=== PATIENT | female | born 1970 | race Caucasian/White ===

== ENCOUNTER 2021-02-08 16:02 | Emergency (ER) | payer OTHER, SELFPAY ==
--- NOTE | ~2021-02-08 | XR_ITS ---
EXAMINATION: XR chest 2V DATE: 02/08/2021 17:30 INDICATION: Congestion and sinus drainage TECHNIQUE: PA and lateral views of the chest are obtained. COMPARISON: 10/24/2015 FINDINGS: The lungs are free of acute opacities. There is no pleural effusion or pneumothorax. The ca rdiomediastinal silhouette is normal. There is moderate thoracic spondylosis. IMPRESSION: 1. No acute cardiopulmonary abnormality. Reviewed, dictated and finalized at location A.
[2021-02-08 16:12] VITALS: BP 149/86; PULSE 86; RESP 20; TEMP 36.2; O2SAT 97
--- NOTE | 2021-02-08 17:11 | ECG_ITS ---
Measurements Intervals [place] Rate: 72 P: 41 KS: 175 QRS: -13 QRSD: 104 T: 4 QT: 386 QTc: 424 Interpretive Statements SINUS RHYTHM BORDERLINE R WAVE PROGRESSION, ANTERIOR LEADS BORDERLINE T WAVE ABNORMALITY- ANT/INF LEADS BASELINE ARTIFACT- I, II, AVR, AVL, AVF BORDERLINE ECG Electronically Signed On 02-09-2021 8:04:41 CDT by Arron Lyon D.O.
[2021-02-08] MEDS: traMADol HCL (*CRX) 50 MG TABLET PO (17:22)
[2021-02-08] MEDS: BENZONATATE 100 MG CAPSULE 200 MG PO (17:23)
[2021-02-08 17:31] LABS: Basophils Percent Auto 0.7 % (0.0-1.0); Eosinophils Absolute Auto 0.21 K/mm3 (0.02-0.50); Eosinophils Percent Auto 1.5 % (1.0-6.0); Hematocrit 39.5 % (35.0-49.0); Hemoglobin 13.2 g/dL (12.0-15.0); Immature Granulocyte Absolute 0.06 K/mm3 (0.00-0.00); Immature Granulocyte Percent A 0.4 % (0.0-0.0); Lymphocytes Absolute Auto 2.52 K/mm3 (1.10-4.50); Lymphocytes Percent Auto 17.5 % (18.0-42.0); Mean Corpuscular HGB Conc 33.4 g/dL (32.0-36.0); Mean Corpuscular Hemoglobin 28.7 pg (27.0-31.0); Mean Corpuscular Volume 85.9 fL (78.0-102.0); Mean Platelet Volume 9.3 fl (9.2-11.8); Monocytes Absolute Auto 0.83 K/mm3 (0.10-0.90); Monocytes Percent Auto 5.7 % (2.0-11.0); Neutrophils Absolute Auto 10.7 K/mm3 (1.7-7.2); Neutrophils Percent Auto 74.2 % (50.0-70.0); Platelet Count Result 406 K/mm3 (150-420); Red Cell Distribution Width 12.9 % (11.6-14.4); White Blood Count 14.4 K/mm3 (4.8-10.8)
[2021-02-08 17:38] LABS: Anion Gap 10 mmol/L (8-16); Blood Urea Nitrogen 12 mg/dL (7-18); Carbon Dioxide 29 mmol/L (21-32); Chloride 100 mmol/L (98-108); Estimated CRCL calculation 103 ml/min; Estimated Glomerular Filt Rate > 60; Glucose 118 mg/dL (70-99); Osmolality Calculated 288 mOsm/kg (285-295); Potassium 3.3 mmol/L (3.5-5.1); Sodium 139 mmol/L (136-145)
[2021-02-08 17:48] LABS: Troponin I 29.5 ng/L (0.00-60.4)
[2021-02-08 18:01] LABS: BNP 62.7 pg/mL (0-100)
--- NOTE | 2021-02-08 18:11 | ED.URI ---
HPI - URI/Sore Throat General Chief Complaint: Upper Respiratory Infection Stated Complaint: URI Time Seen by Provider: 02/08/21 16:25 Source: patient Mode of arrival: ambulatory Limitations: no limitations History of Present Illness HPI Narrative: Patient comes in with cough, runny nose, and chest heaviness from the cough. Cough has been moderately severe and ongoing. [facility], worried about pneumonia, and chest heaviness which has been ongoing for a few hours and related to coughing. Severity: moderate Description of mucous: clear (clear thin nasal discharge) and watery Related Data Home Medications Medication Instructions Recorded Confirmed furosemide 40 mg PO DAILY 02/08/21 02/08/21 glimepiride 2 mg PO DAILY 02/08/21 02/08/21 metformin 1,000 mg PO BID 02/08/21 02/08/21 sitagliptin [Januvia] 100 mg PO DAILY 02/08/21 02/08/21 Allergies Allergy/AdvReac Type Severity Reaction Status Date / Time ciprofloxacin AdvReac Intermediate Dizziness Verified 08/05/19 09:46 Review of Systems Constitutional: Constitutional: Reports no additional constitutional complaints Eyes: Eyes: Reports no additional eye complaints ENT: Reports system reviewed and no additional complaints, except as documented Cardiovascular: Cardiovascular: Reports no additional cardiovascular complaints Respiratory: Respiratory: Reports no additional respiratory complaints Gastrointestinal: Gastrointestinal: Reports no additional gastrointestinal complaints Genitourinary: Genitourinary: Reports no additional female genitourinary complaints Musculoskeletal: Musculoskeletal: Reports no additional musculoskeletal complaints Integumentary/Breasts: Skin/Breast: Reports system reviewed and no additional complaints, except as docu Neurologic: Reports system reviewed and no additional complaints, except as documented Psychiatric: Psychiatric: Reports no additional psychiatric complaints Endocrine: Endocrine: Reports no additional endocrine complaints Hematologic/Lymphatic: Hematologic/Lymphatic: Reports no additional hematologic/lymphatic complaints Allergic/Immunologic: Allergic/Immunologic: Reports no additional allergic/immunologic complaints [facility] Past Medical History Medical History Diabetes Edema Surgical History Surgical History H/O vein stripping History of cholecystectomy Status post breast reduction Family History Family History (Updated 02/09/21 @ 06:21 by Reinaldo Payan MD) Mother CAD (coronary artery disease) Social History Social History (Updated 02/09/21 @ 06:22 by Reinaldo Payan MD) Smoking status: Former smoker Alcohol use details: rare alcohol use with friends Exam Const: General: no acute distress HENMT: Head: normal to inspection Ears: external ears normal and TM abnormal (clear thin nasal discharge) Mouth: Yes Normal oral and palatal mucosa present and Yes Abnormal oral and palatal mucosa present (mild erythema of pharynx) Eyes: Conjunctivae: conjunctivae normal Neck: Neck: normal visual inspection Chest: Chest palpation & inspection: normal inspection of the chest Resp: Effort & Inspection: normal respiratory effort Auscultation: clear to auscultation bilaterally Cardio: Rate: regular rate Rhythm: regular rhythm GI: GI Palp: Yes Soft to palpation (nontender) Back/Spine/Pelvis: Back: no CVA tenderness Skin: General skin exam: normal color Neuro: General: patient oriented x3 and moves all extremities Extrem: General: normal to inspection Psych: Appearance: grossly normal Mental Status: mental status grossly normal Thought content: Yes Normal thought content present Course Course Emergency Course: Labs were reviewed. Chest x ray was reviewed. Vital Signs Vital signs: Vital Signs Temperature 36.2 C L 02/08/21 16:12 Pulse Rate 86
[2021-02-08 18:41] VITALS: BP 121/64; PULSE 74; RESP 20; TEMP 37.1; O2SAT 96
== END 2021-02-08 18:49 | disposition home or self-care (01) ==
PROVIDERS: Emergency Provider Emergency Medicine
DX: B34.9 Viral infection, unspecified (principal)
CPT/HCPCS: 36415; 71046; 80048; 83880; 84484; 85025; 93005; 99282; 99284; A9270

== ENCOUNTER 2021-08-07 09:23 | Emergency (ER) | payer OTHER, SELFPAY ==
[2021-08-07 09:51] VITALS: BP 156/91; PULSE 66; RESP 18; TEMP 36.8; O2SAT 98
--- NOTE | 2021-08-07 10:11 | ED.SKABFB ---
HPI - Skin/Abscess/Foreign Bdy General Chief complaint: Skin/Abscess/Foreign Body Stated complaint: SCABIES Source: patient and family Mode of arrival: ambulatory History of Present Illness HPI narrative: this is a 51-year-old female that presents with her son they have a distinct itchy rash located on arms and her abdomen and chest and lower extremities started days ago her son is with her and he has similar symptoms with some follicular lesions that are located on on her arms and they do have a hot tub at home that they both use, currently there is no fever or chills there is some itching currently no drainage no nausea vomiting there is no burrows to suggest evidence of scabies. complaint: rash Onset (ago): day(s) Location: chest, L hand and R hand Severity: moderate Related Data Home Medications Medication Instructions Recorded Confirmed furosemide 40 mg PO DAILY 02/08/21 02/08/21 glimepiride 2 mg PO DAILY 02/08/21 02/08/21 metformin 1,000 mg PO BID 02/08/21 02/08/21 sitagliptin [Januvia] 100 mg PO DAILY 02/08/21 02/08/21 Allergies Allergy/AdvReac Type Severity Reaction Status Date / Time No Known Allergies Allergy Verified 08/07/21 10:03 Review of Systems Review of Systems: All systems reviewed & are unremarkable except as noted in HPI and below PMFSH Past Medical History Medical History Diabetes Edema Surgical History Surgical History H/O vein stripping History of cholecystectomy Status post breast reduction Family History Family History Mother CAD (coronary artery disease) Social History Social History Smoking status: Former smoker Alcohol use details: rare alcohol use with friends Exam Const: General: no acute distress Eyes: Conjunctivae: conjunctivae normal Pupils: Equal, round and reactive pupils present EOM: EOMs intact bilaterally Neck: Neck: normal visual inspection, no lymphadenopathy and no meningeal signs Chest: Chest palpation & inspection: normal inspection of the chest Resp: Effort & Inspection: normal respiratory effort Cardio: Rate: regular rate : General: Yes no CVA tenderness Course Course Emergency Course: Will treat with antibiotic Keflex and advised patient to take Benadryl as needed for itching Critical Care Time Critical Care Time Critical Care Time: No Discharge Plan Discharge Clinical Impression: Hot tub folliculitis Patient Disposition: Home, Self-Care Condition: Stable Instructions: Antibiotic Form, Folliculitis (ED) Additional Instructions: take medicine as prescribed, can use Benadryl as needed for itching and if symptoms persist or worsen should follow up with primary care physician. Prescriptions: New cephalexin 500 mg capsule 500 mg PO Q12H Qty: 10 RF: 0 cephalexin 500 mg capsule 500 mg PO Q12H Qty: 20 RF: 0 No Action furosemide 40 mg tablet 40 mg PO DAILY RF: 0 glimepiride 2 mg tablet 2 mg PO DAILY RF: 0 metformin 1,000 mg tablet 1,000 mg PO BID RF: 0 Januvia 100 mg tablet 100 mg PO DAILY RF: 0 Follow-up/Referrals: UNKNOWN,DOCTOR [Primary Care Provider] - Time of Disposition: 10:18
[2021-08-07 10:47] VITALS: BP 147/97; PULSE 64; RESP 18; O2SAT 99
== END 2021-08-07 10:50 | disposition home or self-care (01) ==
PROVIDERS: Emergency Provider Emergency Medicine
DX: L73.8 Other specified follicular disorders (principal)
CPT/HCPCS: 99283

== ENCOUNTER 2023-01-18 10:19 | Emergency (ER) | payer OTHER, SELFPAY ==
[2023-01-18 10:24] VITALS: BP 132/85; PULSE 65; RESP 16; TEMP 36.1; O2SAT 100
[2023-01-18 10:28] VITALS: BP 132/85; PULSE 65; RESP 16; TEMP 36.1; O2SAT 100
--- NOTE | 2023-01-18 10:29 | ED.URI ---
HPI - URI/Sore Throat General Chief Complaint: Upper Respiratory Infection Stated Complaint: Cough/Sinus/Throat Time Seen by Provider: 01/18/23 10:29 Source: patient Mode of arrival: ambulatory Limitations: no limitations History of Present Illness HPI Narrative: Patient is a 52-year-old female who presents with a week and half of sinus congestion, cough, sore throat, ear fullness. Reports fever and fatigue started Wednesday. Taken Tylenol, DayQuil and NyQuil with mild relief. States she had COVID and strep throat in November and was admitted to hospital. Related Data Home Medications Medication Instructions Recorded Confirmed furosemide 40 mg tablet 60 mg PO DAILY 02/08/21 01/18/23 metformin 1,000 mg tablet 500 mg PO TID 02/08/21 01/18/23 dulaglutide 4.5 mg/0.5 mL 4.5 mg subcut WEEKLY 01/18/23 01/18/23 subcutaneous pen injector (Trulicity) empagliflozin 25 mg tablet 25 mg PO DAILY 01/18/23 01/18/23 (Jardiance) Allergies Allergy/AdvReac Type Severity Reaction Status Date / Time [id number] Reductase Allergy Intermediate Cramping Verified 01/18/23 10:50 Inhibitor of the Muscles ciprofloxacin AdvReac Mild Dizziness Verified 01/18/23 10:50 Review of Systems Review of Systems: All systems reviewed & are unremarkable except as noted in HPI and below Constitutional: Constitutional: Denies body ache(s), Reports fatigue, Reports fever(s), Reports malaise and Denies weakness Eyes: Eyes: Denies loss of vision ENT: Reports otalgia, Denies headache(s), Reports nasal congestion, Denies sinus pain and Reports sore throat Cardiovascular: Cardiovascular: Denies chest pain, Denies irregular heart rhythm and Denies dyspnea Respiratory: Respiratory: Reports cough and Denies dyspnea Gastrointestinal: Gastrointestinal: Denies abdominal pain, Denies melena, Denies hematochezia, Denies diarrhea, Denies nausea and Denies vomiting Musculoskeletal: Musculoskeletal: Denies back pain, Denies myalgias and Denies arthralgias Integumentary/Breasts: Skin/Breast: Denies pruritus and Denies rash Neurologic: Denies headache(s), Denies loss of vision and Denies weakness Psychiatric: Psychiatric: Reports no additional psychiatric complaints PMFSH Past Medical History Medical History Diabetes Edema Surgical History Surgical History H/O vein stripping History of cholecystectomy Status post breast reduction Family History Family History Mother CAD (coronary artery disease) Social History Social History Smoking status: Former smoker Alcohol use details: rare alcohol use with friends Comments At time of signature, agree with nursing past medical, surgical, social and family history. There is no relevant family history pertinent to the presenting complaint. Exam Const: General: cooperative, healthy appearing, comfortable, no acute distress and well nourished Nutritional Appearance: well nourished Orientation/consciousness: patient oriented x3 Limitations: no limitations HENMT: Head: normal to inspection, normocephalic and atraumatic Ears: hearing grossly normal bilaterally, external ears normal and TM's normal bilaterally Face/Nose/Sinus: Normal external nose present, Abnormal mucous membranes and turbinates present erythematous bilateral and diffuse, normal facial exam, sinuses nontender and face symmetric Face and sinus: normal facial exam, sinuses nontender and face symmetric Mouth: Yes Normal oral and palatal mucosa present, Yes lip normal and Yes moist mucous membranes Teeth and gingiva: dentition normal Throat: posterior oropharynx normal, uvula midline, abnormal tonsil bilateral erythema, hypertrophy 2+ and pitting and posterior oropharynx abnormal erythema Eyes: General: appeara
== END 2023-01-18 10:58 | disposition home or self-care (01) ==
PROVIDERS: Emergency Provider Nurse Practitioner Family; PCP Internal Medicine
DX: J06.9 Acute upper respiratory infection, unspecified (principal); E11.9 Type 2 diabetes mellitus without complications; Z87.891 Personal history of nicotine dependence
CPT/HCPCS: 87081; 87880; 99213; G0463

== ENCOUNTER 2023-07-01 11:56 | Emergency (ER) | payer OTHER, SELFPAY ==
[2023-07-01 12:07] VITALS: BP 112/71; PULSE 69; RESP 16; TEMP 36.6; O2SAT 99
--- NOTE | 2023-07-01 13:02 | ED.EXTPRO ---
HPI - Extremity Problem General Chief complaint: Extremity Problem,Nontraumatic Stated complaint: right toe pain Time Seen by Provider: 07/01/23 12:45 Source: patient, RN notes reviewed and old records reviewed Mode of arrival: ambulatory Limitations: no limitations History of Present Illness HPI Narrative: 52 year old female who presents to express care with complaints of right toe pain with redness and swelling of medial side of right great toe for the past 2 days. Patient reports that she wonders if she has gout has never experienced gout before. Patient reports that right great toe is throbbing and it is difficult to walk on her foot. Patient reports history of diabetes, elevated cholesterol, has had previous orthopedic surgery to right great toe with screw in place.Patient reports that she takes Lasix related to having vein stripping of bilateral lower legs. Patient has not taken any OTC medications for her discomfort. Patient denies any recent trauma to right great toe or foot. MD Complaint: other (right toe pain) Onset (ago): day(s) (2) Pain Consistency: constant Location: right and toe (great) Quality: other (Throbbing) Exacerbating factors: range of motion, weight bearing, walking and palpation Related Data Home Medications Medication Instructions Recorded Confirmed furosemide 40 mg tablet 60 mg PO DAILY 02/08/21 07/01/23 metformin 1,000 mg tablet 500 mg PO TID 02/08/21 07/01/23 dulaglutide 4.5 mg/0.5 mL 4.5 mg subcut WEEKLY 01/18/23 07/01/23 subcutaneous pen injector (Trulicity) empagliflozin 25 mg tablet 25 mg PO DAILY 01/18/23 07/01/23 (Jardiance) rosuvastatin 5 mg tablet 5 mg PO DIRECTED 07/01/23 07/01/23 Allergies Allergy/AdvReac Type Severity Reaction Status Date / Time [id number] Reductase Allergy Intermediate Cramping Verified 01/18/23 10:50 Inhibitor of the Muscles ciprofloxacin AdvReac Mild Dizziness Verified 01/18/23 10:50 Review of Systems Review of Systems: CONSTITUTIONAL: Denies fever, chills, or sweats. EYES: Denies visual changes, redness, or discharge. ENT: Denies rhinorrhea, congestion, sore throat, or otalgia. CARDIOVASCULAR: Denies chest pain, palpitations, or edema. RESPIRATORY: Denies cough or dyspnea. GASTROINTESTINAL: Denies abdominal pain, nausea, vomiting, or diarrhea. GENITOURINARY: Denies dysuria or hematuria. SKIN: Denies rash or itching. swelling and redness of right great toe especially medial aspect MUSCULOSKELETAL: Denies back pain,positive for right great toe joint pain, or myalgia. NEUROLOGIC: Denies headache, numbness, or weakness. PSYCHIATRIC: Denies anxiety or depression. All systems reviewed & are unremarkable except as noted in HPI and below PMFSH Past Medical History Medical History (Updated 07/02/23 @ 15:48 by Zulma Cadena NP) Diabetes Edema Elevated cholesterol Surgical History Surgical History (Updated 07/02/23 @ 15:51 by Zulma Cadena NP) H/O tubal ligation H/O vein stripping History of cholecystectomy History of toe surgery orthopedic to right great toe has screw Status post breast reduction Family History Family History Mother CAD (coronary artery disease) Social History Social History (Updated 07/02/23 @ 15:48 by Zulma Cadena NP) Smoking status: Former smoker Alcohol intake: former Alcohol use details: former social Substance use type: does not use Living arrangements: with family Gender identity (if verbalized by the patient): Female Comments At time of signature, agree with nursing past medical, surgical, social and family history. There is no relevant family history pertinent to the presenting complaint Exam Narrative: GENERAL: Well-appearing, well-nourished, and in no acute distress. HEAD: Normocephalic, atraumatic. EYES: PERRLA and EOMI. ENT: Nares clear, no rhinorrhea or epistaxis. Mucous membranes moist.TM's normal t
== END 2023-07-01 13:33 | disposition home or self-care (01) ==
PROVIDERS: Emergency Provider Registered Nurse; PCP Internal Medicine
DX: M10.9 Gout, unspecified (principal); Z87.891 Personal history of nicotine dependence; E11.9 Type 2 diabetes mellitus without complications; Z79.84 Long term (current) use of oral hypoglycemic drugs; E78.00 Pure hypercholesterolemia, unspecified
CPT/HCPCS: 99213; G0463

== ENCOUNTER 2023-08-25 15:56 | Emergency (ER) | payer OTHER, SELFPAY ==
[2023-08-25 16:04] VITALS: BP 112/72; PULSE 61; RESP 16; TEMP 36.9; O2SAT 99
--- NOTE | 2023-08-25 16:36 | ED.NAVMDI ---
HPI - Nausea/Vomiting/Diarrhea General Chief complaint: Abdominal Pain Stated complaint: Abdominal Pain Time Seen by Provider: 08/25/23 16:05 Source: patient Mode of arrival: ambulatory Limitations: no limitations History of Present Illness HPI Narrative: Patient is a 53-year-old female who presents with 1 day of nausea, abdominal cramping, diarrhea and chills. Reports son has similar symptoms last week. Took at home COVID test is negative. Denies any fever, sore throat, ear pain, congestion, cough. Related Data Home Medications Medication Instructions Recorded Confirmed furosemide 40 mg tablet 60 mg PO DAILY 02/08/21 07/01/23 metformin 1,000 mg tablet 500 mg PO TID 02/08/21 07/01/23 dulaglutide 4.5 mg/0.5 mL 4.5 mg subcut WEEKLY 01/18/23 07/01/23 subcutaneous pen injector (Trulicity) empagliflozin 25 mg tablet 25 mg PO DAILY 01/18/23 07/01/23 (Jardiance) rosuvastatin 5 mg tablet 5 mg PO DIRECTED 07/01/23 07/01/23 Allergies Allergy/AdvReac Type Severity Reaction Status Date / Time [id number]-[id number] Reductase Allergy Intermediate Cramping Verified 08/25/23 16:09 Inhibitor of the Muscles ciprofloxacin AdvReac Mild Dizziness Verified 08/25/23 16:09 Review of Systems Review of Systems: All systems reviewed & are unremarkable except as noted in HPI and below Constitutional: Constitutional: Denies body ache(s), Reports chills, Denies fatigue, Denies fever(s), Denies headache(s), Denies malaise and Denies weakness Eyes: Eyes: Denies blurry vision, Denies irritation and Denies loss of vision ENT: Denies otalgia, Denies headache(s), Denies nasal discharge, Denies sinus pain and Denies sore throat Cardiovascular: Cardiovascular: Denies chest pain, Denies irregular heart rhythm and Denies dyspnea Respiratory: Respiratory: Denies dyspnea Gastrointestinal: Gastrointestinal: Denies abdominal pain, Denies melena, Denies hematochezia, Reports GI cramping, Reports diarrhea, Reports nausea and Denies vomiting Musculoskeletal: Musculoskeletal: Denies back pain, Denies myalgias and Denies arthralgias Integumentary/Breasts: Skin/Breast: Denies pruritus and Denies rash Neurologic: Denies headache(s), Denies loss of vision and Denies weakness Psychiatric: Psychiatric: Reports no additional psychiatric complaints Endocrine: Endocrine: Denies fatigue PMFSH Past Medical History Medical History Diabetes Edema Elevated cholesterol Surgical History Surgical History H/O tubal ligation H/O vein stripping History of cholecystectomy History of toe surgery orthopedic to right great toe has screw Status post breast reduction Family History Family History Mother CAD (coronary artery disease) Social History Social History Smoking status: Former smoker Alcohol intake: former Alcohol use details: former social Substance use type: does not use Living arrangements: with family Gender identity (if verbalized by the patient): Female Comments At time of signature, agree with nursing past medical, surgical, social and family history. There is no relevant family history pertinent to the presenting complaint. Exam Const: General: cooperative, healthy appearing, comfortable, no acute distress and well nourished Nutritional Appearance: well nourished Orientation/consciousness: patient oriented x3 Limitations: no limitations HENMT: Head: normal to inspection, normocephalic and atraumatic Ears: hearing grossly normal bilaterally and external ears normal Face/Nose/Sinus: Normal external nose present, normal facial exam and face symmetric Face and sinus: normal facial exam and face symmetric Mouth: Yes lip normal Eyes: General: appearance normal, both eyes and all related structure
== END 2023-08-25 16:43 | disposition home or self-care (01) ==
PROVIDERS: Emergency Provider Nurse Practitioner Family; PCP Internal Medicine
DX: K52.9 Noninfective gastroenteritis and colitis, unspecified (principal); Z87.891 Personal history of nicotine dependence; E11.9 Type 2 diabetes mellitus without complications; E78.00 Pure hypercholesterolemia, unspecified; Z79.84 Long term (current) use of oral hypoglycemic drugs
CPT/HCPCS: 99213; G0463